=== PATIENT | male | born 1985 | race American Indian/Alaskan Native ===

== ENCOUNTER 2016-10-12 15:04 | Emergency (ER) | payer OTHER ==
[2016-10-12 16:42] VITALS: BP 114/76; PULSE 75; RESP 18; TEMP 97.6; O2SAT 99
--- NOTE | 2016-10-12 17:03 | RAD ---
PROCEDURE: Radiographs of the Lumbar Spine. HISTORY: r/o fx COMPARISON: No prior. FINDINGS: BONES: Normal alignment. No listhesis. No fracture. DISC SPACES: Unremarkable. OTHER FINDINGS: None. IMPRESSION: No radiographic evidence of acute fracture. Grade 1 anterior spondylolisthesis of L5 relative to S1 of uncertain chronicity.
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
== END 2016-10-12 16:45 | disposition home or self-care (01) ==
LOC: C.ER 15:04
DX: S39.012A Strain of muscle, fascia and tendon of lower back, initial encounter (principal); V49.49XA Driver injured in collision with other motor vehicles in traffic accident, initial encounter

== ENCOUNTER 2017-01-13 19:37 | Emergency (ER) | payer OTHER ==
[2017-01-13 19:44] VITALS: BP 137/81; PULSE 82; RESP 18; TEMP 98.2; O2SAT 98
[2017-01-13] MEDS ORDERED: Oxycodone/Acetaminophen 5/325 mg Tab PO STA (20:05)
[2017-01-13] MEDS ORDERED: Oxycodone/Acetaminophen 5/325 mg Tab ONE (20:07)
--- NOTE | 2017-01-13 20:19 | C.PDOC ---
History Of Present Illness 31 y/o male presents to the ED with complaints of dental pain for the past few days. Pt states was told he needed a root canal and has been unable to follow up with dentist. Pt denies trauma, fever, facial swelling or any other complaints. Time Seen by Provider: 01/13/17 19:52 Chief Complaint (Nursing): Dental Pain History Per: Patient History/Exam Limitations: no limitations Onset/Duration Of Symptoms: Days Current Symptoms Are (Timing): Still Present Severity: Moderate Quality: Positive for: "Pain" Recent travel outside of the [place]: No Past Medical History Reviewed: Historical Data, Nursing Documentation, Vital Signs Vital Signs: Last Vital Signs Temp 98.2 F 01/13/17 19:41 Pulse 82 01/13/17 19:41 Resp 18 01/13/17 19:41 BP 137/81 01/13/17 19:41 Pulse Ox 98 01/13/17 20:43 - Medical History PMH: Asthma Family History: States: Unknown Family Hx - Social History Hx Tobacco Use: Yes Hx Alcohol Use: Yes Hx Substance Use: Yes (Marijuana) - Immunization History Hx Tetanus Toxoid Vaccination: Yes Hx Influenza Vaccination: No Hx Pneumococcal Vaccination: No Review Of Systems Except As Marked, All Systems Reviewed And Found Negative. Constitutional: Negative for: Fever, Chills ENT: Positive for: Other (dental pain) Physical Exam - Physical Exam Appears: Non-toxic, No Acute Distress Skin: Warm, Dry, No Rash Head: Atraumatic, Normacephalic, Swelling (swelling with ecchymosis to buccal aspect left cheek) Eye(s): bilateral: Normal Inspection, PERRL Ear(s): Bilateral: Normal Nose: Normal Oral Mucosa: Moist Tongue: Normal Appearing, No Swelling, No Lesions Teeth: Other (right upper posterior molar with large cavity, no gingival swelling or tenderness. Left upper gingival tenderness with small local area of induration and dental caries to left upper posterior molar) Throat: Normal, No Erythema Neck: Normal, Normal ROM, Supple Chest: Symmetrical Cardiovascular: Rhythm Regular, No Murmur Respiratory: Normal Breath Sounds, No Rales, No Rhonchi, No Wheezing Neurological/Psych: Oriented x3, Normal Speech ED Course And Treatment O2 Sat by Pulse Oximetry: 98 (room air) Pulse Ox Interpretation: Normal Progress Note: Plan: percocet, penicillin Disposition Counseled Patient/Family Regarding: Diagnosis, Need For Followup, Rx Given - Disposition Disposition: HOME/ ROUTINE Disposition Time: 20:19 Condition: STABLE Additional Instructions: PLEASE FOLLOW UP WITH DENTIST - CALL FOR APPOINTMENT TAKE MEDS PRESCRIBED RETURN TO ER IF WORSE Prescriptions: Acetaminophen with Codeine [Tylenol with Codeine #3 Tablet] 1 - 2 each PO QID # 14 tablet Penicillin VK [Pen-Vee K] 2 tab PO BID #28 tab Instructions: Dental Abscess (ED), Dental Caries (ED) - Clinical Impression Clinical Impression: Dental abscess, Dental caries - PA / ADOBE MAKER / Resident Statement MD/DO has reviewed & agrees with the documentation as recorded. - Scribe Statement The provider has reviewed the documentation as recorded by the Ahmet Barrera All medical record entries made by the Ahmet were at my direction and personally dictated by me. I have reviewed the chart and agree that the record accurately reflects my personal performance of the history, physical exam, medical decision making, and the department course for this patient. I have also personally directed, reviewed, and agree with the discharge instructions and disposition.
== END 2017-01-13 20:34 | disposition home or self-care (01) ==
LOC: C.ER 19:37
DX: K04.7 Periapical abscess without sinus (principal); K02.9 Dental caries, unspecified

== ENCOUNTER 2017-05-13 13:53 | Emergency (ER) | payer OTHER ==
[2017-05-13 14:04] VITALS: BP 136/80; PULSE 83; RESP 20; TEMP 97.5; O2SAT 99
--- NOTE | 2017-05-13 14:18 | C.PDOC ---
History Of Present Illness 31 y/o male c/o nasal congestion, mild cough for 1 day. Patient reports he was sent home from work due to symptoms. Denies fever, chills, nausea, vomiting, sick contacts, recent travel. Time Seen by Provider: 05/13/17 14:13 Chief Complaint (Nursing): Cough, Cold, Congestion History Per: Patient History/Exam Limitations: no limitations Onset/Duration Of Symptoms: Days Current Symptoms Are (Timing): Still Present Location Of Pain: None Sick Contacts (Context): None Associated Symptoms: Cough, Nasal Congestion. denies: Fever, Vomiting, Diarrhea Ear Symptoms: Bilateral: None Recent travel outside of the [place]: No Past Medical History Reviewed: Historical Data, Nursing Documentation, Vital Signs Vital Signs: Last Vital Signs Temp 97.5 F L 05/13/17 14:02 Pulse 83 05/13/17 14:02 Resp 20 05/13/17 14:02 BP 136/80 05/13/17 14:02 Pulse Ox 99 05/13/17 14:18 - Medical History PMH: Asthma Family History: States: Unknown Family Hx - Social History Hx Tobacco Use: Yes Hx Alcohol Use: Yes Hx Substance Use: Yes (Marijuana) - Immunization History Hx Tetanus Toxoid Vaccination: Yes Hx Influenza Vaccination: No Hx Pneumococcal Vaccination: No Review Of Systems Except As Marked, All Systems Reviewed And Found Negative. Constitutional: Negative for: Fever, Chills ENT: Positive for: Nose Congestion. Negative for: Ear Pain, Throat Pain Respiratory: Positive for: Cough. Negative for: Shortness of Breath, Wheezing Gastrointestinal: Negative for: Nausea, Vomiting, Abdominal Pain, Diarrhea Musculoskeletal: Negative for: Neck Pain Skin: Negative for: Rash Neurological: Negative for: Headache, Dizziness Physical Exam - Physical Exam Appears: Non-toxic, No Acute Distress Skin: Normal Color, Warm, Dry Head: Atraumatic, Normacephalic Eye(s): bilateral: Normal Inspection, PERRL, EOMI Ear(s): Bilateral: Normal Nose: No Discharge, Other ( mild nasal erythema) Oral Mucosa: Moist Throat: Normal, No Erythema, No Exudate, No Drooling Neck: Supple Chest: Symmetrical Cardiovascular: Rhythm Regular Respiratory: Normal Breath Sounds, No Rales, No Rhonchi, No Wheezing Gastrointestinal/Abdominal: Soft, No Tenderness, No Guarding, No Rebound Back: Normal Inspection Extremity: Normal ROM, Capillary Refill (< 2 sec. ) Neurological/Psych: Oriented x3 ED Course And Treatment O2 Sat by Pulse Oximetry: 99 (RA) Pulse Ox Interpretation: Normal Medical Decision Making Medical Decision Making: mild viral syndrome mild nasal erythema Disposition Doctor Will See Patient In The: Office Counseled Patient/Family Regarding: Studies Performed, Diagnosis - Disposition [facility]Outside[facility] Disposition: HOME/ ROUTINE Disposition Time: 14:18 Condition: GOOD Additional Instructions: continue Dayquil/Nyquil, motrin/tylenol as needed Follow-up in our outpatient Clinic as needed No work until afebrile for 24 hours. Instructions: Viral Syndrome (ED) Forms: [employer] (Citizen Of [place]), Work Excuse - Clinical Impression Clinical Impression: Viral syndrome - Scribe Statement The provider has reviewed the documentation as recorded by the Scribe SM All medical record entries made by the Scribe were at my direction and personally dictated by me. I have reviewed the chart and agree that the record accurately reflects my personal performance of the history, physical exam, medical decision making, and the department course for this patient. I have also personally directed, reviewed, and agree with the discharge instructions and disposition.
== END 2017-05-13 14:41 | disposition home or self-care (01) ==
LOC: C.ER 13:53
DX: B34.9 Viral infection, unspecified (principal)

== ENCOUNTER 2017-06-14 22:04 | Emergency (ER) | payer MEDICAID ==
[2017-06-14 22:15] VITALS: RESP 18; O2SAT 99
[2017-06-14] MEDS ORDERED: Aluminum Hydroxide/Magnesium Hydroxide Susp (30 mL) PO STA (23:09)
[2017-06-14] MEDS ORDERED: Belladonna-Phenobarbital PO STA (23:09)
[2017-06-14] MEDS ORDERED: Sodium Chloride 0.9% 1,000 ML IV ONE (23:09)
--- NOTE | 2017-06-14 23:10 | C.PDOC ---
History Of Present Illness 31 year old male with a known Hx of gastritis on nexium as needed and daily ETOH consumption presents to the ER with a complaint of epigastric and substernal abdominal pain for the past 3-4 days, associated with darkened stools. Patient reports he gets the pain approximately 1 hour after eating. Denies syncope, hematemesis, or fever. Chief Complaint (Nursing): Abdominal Pain History Per: Patient History/Exam Limitations: no limitations Onset/Duration Of Symptoms: Days Current Symptoms Are (Timing): Still Present Location Of Pain/Discomfort: Epigastric Radiation Of Pain To:: None Quality Of Discomfort: Unable To Describe Associated Symptoms: Other (Darkened stools). denies: Fever, Chills, Vomiting Exacerbating Factors: None Alleviating Factors: None Recent travel outside of the [place]: No Past Medical History Reviewed: Historical Data, Nursing Documentation, Vital Signs Vital Signs: Last Vital Signs Temp 97.7 F 06/15/17 00:36 Pulse 70 06/15/17 00:36 Resp 18 06/15/17 00:36 BP 117/72 06/15/17 00:36 Pulse Ox 99 06/15/17 00:55 - Medical History PMH: Asthma Surgical History: No Surg Hx Family History: States: Unknown Family Hx - Social History Hx Tobacco Use: Yes Hx Alcohol Use: Yes Hx Substance Use: Yes (Marijuana) - Immunization History Hx Tetanus Toxoid Vaccination: Yes Hx Influenza Vaccination: No Hx Pneumococcal Vaccination: No Review Of Systems Constitutional: Negative for: Fever, Chills Cardiovascular: Negative for: Chest Pain Gastrointestinal: Positive for: Abdominal Pain, Other (Darkened stools). Negative for: Vomiting, Hematemesis Physical Exam - Physical Exam Appears: Non-toxic, No Acute Distress Skin: Normal Color, Warm, Dry Head: Atraumatic, Normacephalic Eye(s): bilateral: Normal Inspection Oral Mucosa: Moist Neck: Normal, Supple Chest: Symmetrical, No Tenderness Cardiovascular: Rhythm Regular Respiratory: Normal Breath Sounds, No Rales, No Rhonchi, No Wheezing Gastrointestinal/Abdominal: Bowel Sounds (Increased), Soft, No Tenderness, Distention (Mild), No Guarding, No Rebound, Other (Tympanic to percussion) Neurological/Psych: Oriented x3, Normal Speech ED Course And Treatment - Laboratory Results Result Diagrams: 06/14/17 23:25 06/14/17 23:26 O2 Sat by Pulse Oximetry: 99 (Room air) Pulse Ox Interpretation: Normal Medical Decision Making Medical Decision Making: Blood work ordered. , viscous lidocaine, maalox, pepcid, zofran, and IV fluids administered. Disposition - Disposition Referrals: [facility] [Outside] Disposition: HOME/ ROUTINE Disposition Time: 00:53 Condition: GOOD Prescriptions: Pantoprazole Sodium [Protonix] 40 mg PO DAILY #14 ect Instructions: Gastritis (ED) Forms: [employer] (Pashto) - Clinical Impression Clinical Impression: Gastritis - Scribe Statement The provider has reviewed the documentation as recorded by the Scribe Mc Carter All medical record entries made by the Scribe were at my direction and personally dictated by me. I have reviewed the chart and agree that the record accurately reflects my personal performance of the history, physical exam, medical decision making, and the department course for this patient. I have also personally directed, reviewed, and agree with the discharge instructions and disposition.
[2017-06-14 23:29] LABS: BASO # 0.1 K/uL (0.0-0.2); BASO % 0.9 % (0.0-2.0); EOS # 0.3 K/uL (0.0-0.7); EOS % 4.6 % (0.0-4.0); HEMATOCRIT 41.3 % (35.0-51.0); LYMPH # 2.2 K/uL (1.0-4.3); LYMPH % 31.7 % (20.0-40.0); MEAN CELL VOLUME 68.1 fL (80.0-94.0); MEAN CORPUSCULAR HGB CONC 32.3 g/dL (33.0-37.0); MEAN PLATELET VOLUME 8.7 fL (7.2-11.7); MONO # 0.6 K/uL (0.0-0.8); MONO % 8.3 % (0.0-10.0); RED CELL DISTRIBUTION WIDTH 15.3 % (11.5-14.5); WHITE BLOOD COUNT 6.9 K/uL (4.8-10.8)
[2017-06-14] MEDS ORDERED: Belladonna-Phenobarbital ONE (23:31)
[2017-06-14] MEDS ORDERED: Sodium Chloride 0.9% 1,000 ML ONE (23:32)
[2017-06-14] MEDS ORDERED: Aluminum Hydroxide/Magnesium Hydroxide Susp (30 mL) ONE (23:32)
[2017-06-14 23:41] LABS: ALB/GLOB RATIO 1.6 (1.0-2.1); ALCOHOL SERUM < 10 mg/dl (0-10); ALKALINE PHOSPHATASE 56 U/L (38-126); ALT/SGPT 42 U/L (21-72); AST/SGOT 24 U/L (17-59); BILIRUBIN,TOTAL 0.7 mg/dL (0.2-1.3); BLOOD UREA NITROGEN 25 mg/dL (9-20); CALCIUM 8.5 mg/dl (8.6-10.4); CARBON DIOXIDE 29 mmol/L (22-30); CHLORIDE 102 mmol/L (98-107); GFR AFRICAN-AMERICAN > 60; GLUCOSE,RANDOM 115 mg/dL (75-110); POTASSIUM 3.5 mmol/L (3.6-5.2); SODIUM 138 mmol/L (132-148); TOTAL PROTEIN 6.5 g/dL (6.3-8.3)
[2017-06-15 00:37] VITALS: BP 117/72; PULSE 70; TEMP 97.7
== END 2017-06-15 01:14 | disposition home or self-care (01) ==
LOC: C.ER 22:04
DX: K29.70 Gastritis, unspecified, without bleeding (principal)
CPT/HCPCS: 80053; 80320; 83690; 85025; 96374; 96375; 99284; J2405; J7040

== ENCOUNTER 2018-07-18 11:34 | Emergency (ER) | payer OTHER ==
[2018-07-18] MEDS ORDERED: Albuterol 0.083% Inhal Sol (2.5 mg/3 mL) UD IH STA (11:56)
[2018-07-18 11:57] VITALS: BP 117/75; PULSE 82; RESP 20; TEMP 97.4; O2SAT 98
[2018-07-18] MEDS ORDERED: Naproxen 550 mg Tab PO STA (11:57)
--- NOTE | 2018-07-18 12:00 | C.PDOC ---
History Of Present Illness 33 y/o male pt with hx of asthma presents to the ER c/o diffuse body aches for x1 day. Associated sx includes fever, chills, running nose, sore throat and mild productive cough. 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 Pt denies chest pain, nausea, diarrhea, vomiting, dizziness or lightheadedness. HPI: Influenza Time Seen by Provider: 07/18/18 11:46 Chief Complaint: Flu-like Symptoms History Per: Patient Exam Limitations: no limitations Have you had recent travel within the past 21 days to any of the following countries: [place], [place], [place] or [place]?: No Onset/Duration Of Symptoms: Days (x1) Sick Contacts (Context): Individual(s) At Work Past Medical History Reviewed: Historical Data, Nursing Documentation, Vital Signs Vital Signs: Last Vital Signs Temp 97.4 F L 07/18/18 11:41 Pulse 82 07/18/18 11:41 Resp 20 07/18/18 11:41 BP 117/75 07/18/18 11:41 Pulse Ox 98 07/18/18 11:41 - Medical History PMH: Asthma Family History: States: Unknown Family Hx - Social History Hx Tobacco Use: Yes Hx Alcohol Use: Yes Hx Substance Use: Yes (Marijuana) - Immunization History Hx Tetanus Toxoid Vaccination: Yes Hx Influenza Vaccination: No Hx Pneumococcal Vaccination: No Review Of Systems Constitutional: Positive for: Fever, Chills ENT: Positive for: Nose Discharge, Throat Pain Cardiovascular: Negative for: Chest Pain Respiratory: Positive for: Cough (mild productive ) Gastrointestinal: Negative for: Nausea, Vomiting, Diarrhea Musculoskeletal: Positive for: Other (diffuse body aches ) Neurological: Negative for: Dizziness, Other (lightheadedness) Physical Exam - Physical Exam Appears: Non-toxic, Other (mildly uncomfortable) Skin: Warm, Dry Nose: Discharge (clear) Oral Mucosa: Moist Throat: Normal, No Erythema Chest: Symmetrical Cardiovascular: Rhythm Regular Respiratory: Normal Breath Sounds, No Rales, No Rhonchi, No Wheezing, Other (speaking in full sentences ) Gastrointestinal/Abdominal: Soft, No Tenderness Neurological/Psych: Oriented x3, Normal Speech - ECG O2 Sat by Pulse Oximetry: 98 (RA) Pulse Ox Interpretation: Normal - Progress ED Course And Treament: Plans: -- albuterol -- naproxen -- sudafed -- tamiflu -- nebulizer treatment Reassess: Pt is currently on nebulizer treatment. Pt will receive rx of tamiflu and sudafed to take home. Disposition Counseled Patient/Family Regarding: Diagnosis, Need For Followup, Rx Given - Disposition Referrals: [facility] [Outside] Disposition: HOME/ ROUTINE Disposition Time: 12:30 Condition: STABLE Additional Instructions: FOLLOW UP WITH YOUR DOCTOR/CLINIC IN 1-2 DAYS USE MEDICATIONS DIRECTED DRINK PLENTY OF FLUIDS RETURN TO ER IF SYMPTOMS WORSEN Prescriptions: Albuterol 0.5% [Albuterol 0.5% Inhal Lindy (2.5 mg/0.5 ml) UD] 2.5 mg IH Q6 PRN #1 bottle PRN Reason: Wheezing Benzonatate [Tessalon Perles] 100 mg PO BID PRN #15 sgl PRN Reason: Cough Naproxen 375 mg PO BID PRN #20 tablet PRN Reason: pain Oseltamivir Phosphate [Tamiflu] 75 mg PO BID #10 capsule Pseudoephedrine [Sudafed] 60 mg PO Q6 PRN #12 tab PRN Reason: Nasal Congestion Instructions: Viral Syndrome (DC) Forms: [employer] (Citizen Of [place]), Work Excuse Print Language: CHINESE - Clinical Impression Clinical Impression: Influenza-like illness - Scribe Statement The provider has reviewed the documentation as recorded by the Scribrussell Connelly Do Provider Attestation: All medical record entries made by the Scribe were at my direction and personally dictated by me. I have reviewed the chart and agree that the record accurately reflects my personal performance of the history, physical exam, medical decision making, and the department course for this patient. I have also personally directed, reviewed, and agree with the discharge instructions and disposition.
[2018-07-18] MEDS ORDERED: Naproxen 550 mg Tab PO ONE (12:07)
[2018-07-18] MEDS ORDERED: Albuterol 0.083% Inhal Sol (2.5 mg/3 mL) UD ONE (12:20)
== END 2018-07-18 12:28 | disposition home or self-care (01) ==
LOC: C.ER 11:34
DX: J11.1 Influenza due to unidentified influenza virus with other respiratory manifestations (principal)

== ENCOUNTER 2018-09-17 10:54 | Outpatient (CLI) | payer BC, OTHER | END 2018-09-17 10:55 | disposition home or self-care (01) | LOC: C.LAB 10:54 | DX: S21.23 Puncture wound without foreign body of back wall of thorax without penetration into thoracic cavity (principal) ==

== ENCOUNTER 2018-09-23 11:55 | Outpatient (CLI) | payer BC, OTHER | END 2018-09-23 11:56 | disposition home or self-care (01) | LOC: C.LAB 11:55 | DX: R71.8 Other abnormality of red blood cells (principal) ==

== ENCOUNTER 2018-09-29 11:49 | Outpatient (CLI) | payer BC, OTHER | END 2018-09-29 11:50 | disposition home or self-care (01) | LOC: C.DIABED 11:49 | DX: E78.5 Hyperlipidemia, unspecified (principal) ==